=== PATIENT | female | born 1960 | race Two or more races ===

== ENCOUNTER 2019-02-09 06:09 | Day surgery (SDC) | payer OTHER ==
[2019-02-09] VITALS (11 sets, daily range): BP systolic 90–113; BP diastolic 45–72
[~2019-02-09] VITALS: Ht 160 cm; Wt 51.3 kg
[~2019-02-09 06:09] MED LIST: ceFAZolin 1gm IVPB IVPB ONE; celeBREX 200mg Cap **SURGERY PATIENTS ONLY ORAL ONE; oxyCONTIN 20mg tab ORAL ONE
[2019-02-09] MEDS ORDERED: METFORMIN HCL500 M1 ORAL (08:06)
[2019-02-09] MEDS ORDERED: LOSARTAN POTAS100 MG ORAL (08:06)
[2019-02-09] MEDS ORDERED: ATORVASTATIN CA20 MG ORAL (08:06)
[2019-02-09] MEDS ORDERED: GLIMEPIRIDE4 MG ORAL (08:06)
[2019-02-09] MEDS ORDERED: oxyCONTIN 20mg tab ORAL ONE (08:15)
[2019-02-09] MEDS ORDERED: celeBREX 200mg Cap **SURGERY PATIENTS ONLY ORAL ONE (08:15)
--- NOTE | 2019-02-09 08:23 | Operative Note - PDOC ---
Operative Note Operative Note Pre-op Diagnosis: right shoulder impingement, rc tear Procedure: see op report Post-op Diagnosis: same as pre-op plus Operative Findings: consistent w/pre-op dx studies Anesthesia: regional Specimen: none Complications: none Condition: stable Estimated Blood Loss: none Implant(s) used?: No Tucker Hopson MD Feb 09, 2019 08:23
--- NOTE | 2019-02-09 08:23 | Pre-Procedure Note/Attestation ---
Pre-Procedure Note/Attestation Complete Prior to Procedure Planned Procedure: right Procedure Narrative: shoulder arthroscopy, sad Indications for Procedure Pre-Operative Diagnosis: right shoulder impingement, rc tear Attestation I attest that I discussed the nature of the procedure; its benefits; risks and complications; and alternatives (and the risks and benefits of such alternatives ), prior to the procedure, with the patient (or the patient's legal advertising sales representative). I attest that, if there was a reasonable possibility of needing a blood transfusion, the patient (or the patient's legal advertising sales representative) was given the [facility] standardized written summary, pursuant to the [place] Blood Safety Act ([place] Health and Safety Code # 1645, as amended). I attest that I re-evaluated the patient just prior to the surgery and that there has been no change in the patient's H&P, except as documented below: Tucker Hopson MD Feb 09, 2019 08:22
[2019-02-09] MEDS ORDERED: D5 1/2NS 1,000 ML IV SCH (08:30)
[2019-02-09] MEDS ORDERED: HYDROcodone/Acetamin 5/325 tab ORAL PRN ×2 (08:30→09:30)
[2019-02-09] MEDS ORDERED: HYDROmorphone 1mg/ml Carpuject SUBQ PRN (08:30)
[2019-02-09] MEDS ORDERED: Tylenol #3 tab (300mg/30mg) ORAL PRN (08:30)
[2019-02-09] MEDS ORDERED: Bupivacaine w/Epi 0.5% 30ml Vial INJ ONE (09:10)
[2019-02-09] MEDS ORDERED: Ketorolac 30mg Inj ONE (09:10)
[2019-02-09] MEDS ORDERED: EPINEPHrine 1mg/1ml Amp ONE ×2 (09:10→09:25)
[2019-02-09] MEDS ORDERED: Kenalog-40 1ml Vial ONE (09:10)
[2019-02-09] MEDS ORDERED: LR 1000ml 1,000 ML IVLG SCH (09:24)
--- NOTE | 2019-02-09 09:24 | Anethesia Preoperative Eval ---
Anesthesia Pre-op PMH/ROS General Date of Evaluation: Feb 09, 2019 Time of Evaluation: 09:17 Anesthesiologist: Burke ASA Score: ASA 3 Mallampati Score Class I : Soft palate, uvula, fauces, pillars visible Class II: Soft palate, uvula, fauces visible Class III: Soft palate, base of uvula visible Class IV: Only hard plate visible Mallampati Classification: Class II Surgeon: Mark Anthony Diagnosis: R Shoulder Pain Surgical Procedure: R Shoulder Arthroscopy Anesthesia History: none Family History: no anesthesia problems Allergies: Coded Allergies: No Known Allergies (Unverified , 02/09/19) Medications: see eMAR Patient NPO?: Yes Past Medical History Cardiovascular: Reports: HTN, other - HL Gastrointestinal/Genitourinary: Reports: GERD Endocrine: Reports: DM HEENT: Reports: cataract (L), cataract (R) Anesthesia Pre-op Phys. Exam Physician Exam Last Vital Signs Date Time Temp Pulse Resp B/P (MAP) Pulse Ox O2 Delivery O2 Flow Rate FiO2 02/09/19 08:02 Room Air 02/09/19 08:01 97.2 89 18 107/72 97 Constitutional: NAD Neurologic: CN 2-12 intact Cardiovascular: RRR Respiratory: CTA Gastrointestinal: S/NT/ND Airway Exam Mallampati Score: Class II MO: full ROM: full Teeth: missing Dentures: upper, lower Anesthesia Pre-op A/P Risk Assessment & Plan Assessment: ASA 3 Plan: GA, Block, SED Status Change Before Surgery: No Pre-Antibiotics Dru Gram Ancef IV Given Within 1 Hr of Incision: Yes Time Given: 09:36 Anthony Turk MD Feb 09, 2019 09:24
[2019-02-09] MEDS ORDERED: Sodium Chloride 10ml vial INJ ONE (09:25)
[2019-02-09] MEDS ORDERED: Lidocaine 1% MPF 10mg/ml 5ml ONE (09:25)
[2019-02-09] MEDS ORDERED: Propofol 200mg/20ml IV ONE (09:25)
[2019-02-09] MEDS ORDERED: Ropivacaine 5mg/ml Vial 30ml INJ ONE (09:25)
[2019-02-09] MEDS ORDERED: Dexamethasone 4mg/ml vial ONE (09:25)
[2019-02-09] MEDS ORDERED: Atropine Sulfate 0.4mg/ml inj IVP PRN (09:30)
[2019-02-09] MEDS ORDERED: Ketorolac 30mg Inj IV PRN ×2 (09:30)
[2019-02-09] MEDS ORDERED: NS Irrig 4000ml IRRIG ONE (09:30)
[2019-02-09] MEDS ORDERED: Metoclopramide 10mg/2ml Inj IVP PRN (09:30)
[2019-02-09] MEDS ORDERED: NS Irrig 1000ml ONE (09:30)
[2019-02-09] MEDS ORDERED: DiphenhydrAMINE 50mg/ml Inj IVP PRN (09:30)
[2019-02-09] MEDS ORDERED: Midazolam 2mg/2ml Inj IVP PRN (09:30)
[2019-02-09] MEDS ORDERED: LR 1000ml ONE (09:30)
[2019-02-09] MEDS ORDERED: oxyCODONE HCL/Acetaminophen 5/325mg ORAL PRN (09:30)
[2019-02-09] MEDS ORDERED: Hydromorphone 0.5mg/0.5ml inj IVP PRN (09:30)
[2019-02-09] MEDS ORDERED: Meperidine 50mg/ml Inj(FOR RIGORS ONLY) IVP PRN (09:30)
[2019-02-09] MEDS ORDERED: HYDROcodone/Acetamin 7.5/325 tab ORAL PRN (09:30)
[2019-02-09] MEDS ORDERED: fentaNYL 100 mcg/2 mL IV PRN (09:30)
[2019-02-09] MEDS ORDERED: Labetalol 5mg/ml 20ml vial IV PRN (09:30)
[2019-02-09] MEDS ORDERED: LORazepam Inj 2mg/ml 1ml IV PRN (09:30)
--- NOTE | 2019-02-09 10:39 | Immediate Post-Op Evaluation ---
Immediate Post-Op Evalulation Immediate Post-Op Evalulation Procedure: R Shoulder Arthroscopy Date of Evaluation: Feb 09, 2019 Time of Evaluation: 10:49 IV Fluids: 1000 LR Blood Products: 0 Estimated Blood Loss: 7 Urinary Output: 0 Blood Pressure Systolic: 99 Blood Pressure Diastolic: 49 Pulse Rate: 83 Respiratory Rate: 16 O2 Sat by Pulse Oximetry: 100 Temperature (Fahrenheit): 97.8 Pain Score (1-10): 1 Nausea: No Vomiting: No Complications 0 Patient Status: awake, reacts, patent, extubated, none Hydration Status: adequate Dru Gram Ancef IV Given Within 1 Hr of Incision: Yes Time Given: 09:36 Anthony Turk MD Feb 09, 2019 10:39
--- NOTE | 2019-02-09 10:40 | 48 Hour Post Anesthesia Eval ---
Post Anesthesia Evaluation Procedure: R Shoulder Arthroscopy Date of Evaluation: Feb 09, 2019 Time of Evaluation: 13:12 Blood Pressure Systolic: 116 0: 73 Pulse Rate: 81 Respiratory Rate: 18 Temperature (Fahrenheit): 98.2 O2 Sat by Pulse Oximetry: 100 Airway: patent Nausea: No Vomiting: No Pain Intensity: 1 Hydration Status: adequate Cardiopulmonary Status: Stable Mental Status/LOC: patient returned to baseline Follow-up Care/Observations: 0 Post-Anesthesia Complications: 0 Follow-up care needed: ready to discharge Anthony Turk MD Feb 09, 2019 10:40
[2019-02-09] MEDS ORDERED: Flumazenil 0.1mg/ml 5ml Inj IV ONE (10:47)
[2019-02-09] MEDS ORDERED: GLYXAMBI 25 MG1 EACH PO (13:09)
[2019-02-09] MEDS ORDERED: TOUJEO MAX300 UNIT/1 SQ (13:09)
--- NOTE | 2019-02-09 16:15 | Operative Note - Dictated ---
DATE OF OPERATION: 02/09/2019 PREOPERATIVE DIAGNOSES: 1. Right shoulder partial rotator cuff tear/tendinosis. 2. Right shoulder superior labral tear. 3. Impingement syndrome. POSTOPERATIVE DIAGNOSES: 1. Right shoulder partial rotator cuff tear/tendinosis. 2. Right shoulder superior labral tear. 3. Impingement syndrome. PROCEDURE: 1. Right shoulder diagnostic arthroscopy and intraarticular debridement. 2. Right shoulder subacromial decompression bursectomy. SURGEON: Tucker Hopson M.D. ANESTHESIA: Interscalene with general. INDICATION FOR PROCEDURE: The patient is a pleasant female who has had progressive right shoulder pain, difficulty with overhead activities, nighttime pain. Failed conservative treatment. Had a positive response with cortisone injection. Elected to undergo right shoulder arthroscopy, subacromial decompression bursectomy, possible repair versus debridement of superior labral tear/rotator cuff tear. Risks, limitations, expectations, complications of procedure were discussed in detail. All questions addressed. DESCRIPTION OF PROCEDURE: After informed consent was obtained, the patient was taken to the operating room. The patient was place under interscalene general anesthesia. The patient was then carefully placed in beach-chair position. Right shoulder was prepped and draped in a sterile manner. Time-out was performed. Inferolateral stab incision was then made. Trocar was introduced into the glenohumeral joint. There was no significant chondral damage in the glenoid or humeral head. There was some fraying along the superior labrum. The subscapularis was intact. The biceps tendon was intact. The undersurface of the rotator cuff had a longitudinal split along the insertion of the rotator cuff. Shaver was then placed through the rotator interval and the superior labrum was debrided. That was stable rim of tissue. There was no gross detachment. At this point, the camera was repositioned in the subacromial space. There was hypertrophic bursal tissue. This was debrided to better visualize the anterior aspect of the acromion. Acromioplasty was started from lateral to medial and completed from posterior to anterior. The bursectomy was completed. The instruments removed. Portal sites were closed with 3-0 Monocryl sutures. Steri-Strips and a sterile dressing were applied. The patient was awoken and taken to recovery room with stable vital signs. ESTIMATED BLOOD LOSS: None. COMPLICATIONS: None. SPECIMENS: None. IMPLANTS: None. Tucker Hopson M.D. DR: JAZIEL JOB#: [id number] CC:
== END 2019-02-09 13:00 | disposition home or self-care (01) ==
LOC: SUR 06:09
DX: M75.41 Impingement syndrome of right shoulder (principal); M75.111 Incomplete rotator cuff tear or rupture of right shoulder, not specified as traumatic; S43.401A Unspecified sprain of right shoulder joint, initial encounter; X58.XXXA Exposure to other specified factors, initial encounter; Y92.9 Unspecified place or not applicable; I10 Essential (primary) hypertension; E11.9 Type 2 diabetes mellitus without complications; K21.9 Gastro-esophageal reflux disease without esophagitis
CPT/HCPCS: 29822; 82962; J0171; J0690; J1100; J1885; J2250; J2405; J2704; J2795; J3301; 94003; 94150